=== PATIENT | female | born 2000 | race African-American/Black ===

== ENCOUNTER 2020-07-30 18:42 | Inpatient (IN) ==
[2020-07-30] MEDS ORDERED: LACTATED RINGERS 1,000 ML IV ONE (19:00)
[2020-07-30] MEDS ORDERED: BUTORPHANOL 1 MG/ML VIAL IV PRN (19:00)
[2020-07-30 19:23] LABS: Basophils % 0.2 % (0.0-0.8); Eosinophils # 0.1 10*3/uL (0.0-0.87); Eosinophils % 1.1 % (0.00-10.9); Hematocrit 25.7 VOL% (35.7-47.0); Hemoglobin 8.3 GM/DL (12.0-16.0); Immature Granulocytes % 1.3 %; Immature Granulocytes Absolute 0.11 #; Lymphocytes # 1.9 10*3/uL (1.4-4.0); Lymphocytes % 22.5 % (21.3-54.2); Mean Corpuscular HGB Conc 32.3 GM/DL (32-36); Mean Corpuscular Volume 81.6 FL (87-102); Mean Platelet Volume 10.6 FL (9.6-12.0); Monocytes % 8.6 % (1.7-12.7); Neutrophils % 66.3 % (38.7-73.9); Platelet Count 177 T/CUMM (130-400); Red Blood Count 3.15 MC/CUMM (3.8-5.5); Red Cell Distribution Width 14.4 % (9.3-17.3); White Blood Count 8.4 T/CUMM (4-12)
[2020-07-30] MEDS ORDERED: MEPERIDINE 50 MG/1 ML VIAL IV PRN ×2 (19:23→23:30)
[2020-07-30] MEDS ORDERED: AMPICILLIN INJ 2,000 MG in SODIUM CHLORIDE 0.9% 100 ML IV ONE (19:30)
[2020-07-30 19:43] LABS: Anisocytosis Slight; Hypochromasia 1+; Lymphocytes 18 % (20-55); Segmented Neutrophils 75 % (50-85); Total Cells Counted 100
[2020-07-30 19:44] LABS: Alanine Aminotransferase 11 U/L (13-56); Albumin 2.7 G/DL (3.4-5.0); Alkaline Phosphatase 285 U/L (45-117); Aspartate Amino Transferase 20 U/L (0-37); Bilirubin,Total < 0.39 MG/DL (0.2-1.0); Blood Urea Nitrogen 4 MG/DL (7-18); Calcium 8.3 MG/DL (8.5-10.1); Carbon Dioxide 22 MMOL/L (21-32); Estimated Glom Filtration Rate 128 ML/MIN; Glucose 91 MG/DL (74-106); Osmolality,Calculated 269.8 MOS/KG (273-304); Platelet Estimate Adequate; Polychromasia Few; Potassium 3.5 MMOL/L (3.5-5.1); Reactive Lymphocytes Few; Sodium 137 MMOL/L (136-145); Total Protein 6.8 G/DL (6.4-8.3)
[2020-07-30] MEDS: LACTATED RINGERS 1,000 ML IV SCH (19:45)
[2020-07-30] MEDS: ONDANSETRON 4 MG/2 ML VIAL IV PRN (23:38)
[2020-07-30] MEDS: AMPICILLIN INJ 1,000 MG in SODIUM CHLORIDE 0.9% 100 ML IV SCH (23:50)
[2020-07-31] MEDS ORDERED: diphenhydrAMINE 50 MG/1 ML VIAL IV PRN ×2 (02:22)
[2020-07-31] MEDS ORDERED: NALOXONE 0.4 MG/ML VIAL IV PRN (02:22)
[2020-07-31] MEDS ORDERED: hydrOXYzine HCL 25 MG/1 ML VIAL IM PRN (02:22)
[2020-07-31] MEDS ORDERED: CITRIC ACID/SODIUM CITRATE 30 ML UDCUP PO ONE (02:22)
[2020-07-31] MEDS ORDERED: PROMETHAZINE 25 MG/1 ML VIAL IM ONE (02:22)
[2020-07-31] MEDS ORDERED: ePHEDrine 50 MG/ML VIAL IV PRN (02:22)
[2020-07-31] MEDS ORDERED: FAMOTIDINE 20 MG/2 ML VIAL IV ONE (02:22)
[2020-07-31] MEDS: fentaNYL 2 MCG/ROPIV 0.2% EPID 100 ML EPIDURAL SCH ×3 (02:56→18:21)
[2020-07-31] MEDS: AMPICILLIN INJ 1,000 MG in SODIUM CHLORIDE 0.9% 100 ML IV SCH ×5 (03:41→19:21)
[2020-07-31 03:59] LABS: Bacteria,Urine Occasional /HPF (Few); Bilirubin,Urine Negative (Negative); Blood, Urine Negative (Negative); Glucose,Urine (UA) Negative (Negative); Ketones,Urine Negative (Negative); Nitrite,Urine Negative (Negative); Protein,Urine Negative; RBC,Urine <1 /HPF (0-4); Squamous Epithelial Cell,Urine Occasional /HPF (0-10); Urine Appearance CLEAR (Clear); Urine Color Straw (Yellow); Urine Specific Gravity 1.003 (1.001-1.035); Urine Urobilinogen < 2.0 EU/DL (0.2-1.0); WBC,Urine 7 /HPF (0-6)
[2020-07-31] MEDS: OXYTOCIN/LR 20 UNIT/1,000 ML BAG IV SCH ×2 (05:01→19:32)
[2020-07-31] MEDS: LACTATED RINGERS 1,000 ML IV SCH ×2 (11:01→20:44)
[2020-07-31] MEDS: ONDANSETRON 4 MG/2 ML VIAL IV PRN (20:38)
[2020-07-31] MEDS ORDERED: ceFAZolin 2,000 MG in PREMIX 1 EACH IV ONE (22:03)
[2020-07-31] MEDS ORDERED: METHYLERGONOVINE 0.2 MG/1 ML AMP ONE (22:03)
[2020-07-31] MEDS ORDERED: OXYTOCIN/LR 20 UNIT/1,000 ML BAG IV ONE ×2 (22:03→23:15)
[2020-07-31] MEDS ORDERED: miSOPROStoL 200 MCG TABLET ONE (22:03)
[2020-07-31] MEDS ORDERED: CARBOPROST TROMETHAMINE 250 MCG/ML AMP IM ONE (22:04)
[2020-07-31] MEDS ORDERED: LIDOCAINE MPF 2% /EPI 20 ML VIAL ONE (22:30)
[2020-07-31] MEDS ORDERED: BUPIVACAINE MPF 0.5% /EPI 30 ML VIAL ONE (22:45)
[2020-07-31] MEDS ORDERED: ONDANSETRON 4 MG/2 ML VIAL ONE (22:58)
[2020-07-31] MEDS ORDERED: MORPHINE 10 MG/10 ML VIAL ONE (22:59)
[2020-07-31] MEDS ORDERED: PHENYLEPHRINE 1 MG/10 ML SYRINGE IV ONE (23:05)
[2020-07-31] MEDS ORDERED: ONDANSETRON 4 MG/2 ML VIAL IV PRN (23:15)
[2020-07-31] MEDS ORDERED: RHO(D) IMMUNE GLOBULIN 300 MCG SYRINGE IM ONE (23:15)
[2020-07-31] MEDS ORDERED: MAGNESIUM HYDROXIDE SUSP 30 ML UDCUP PO PRN (23:15)
[2020-07-31] MEDS ORDERED: ACETAMINOPHEN 325 MG TABLET PO PRN (23:15)
[2020-07-31] MEDS ORDERED: SIMETHICONE CHEW 80 MG TABLET PO PRN (23:15)
[2020-07-31] MEDS ORDERED: LACTATED RINGERS 1,000 ML IV SCH (23:30)
[2020-07-31 23:37] LABS: Cord Venous Blood HCO3 23.2 MMOL/L; Cord Venous Blood PCO2 49.4 MMHG; Cord Venous Blood PO2 28.9
[2020-08-01] MEDS: LACTATED RINGERS 1,000 ML IV SCH (00:15)
[2020-08-01] MEDS: IBUPROFEN 800 MG TABLET PO PRN ×2 (02:59→20:24)
[2020-08-01 07:37] LABS: Basophils % 0.1 % (0.0-0.8); Eosinophils % 0.2 % (0.00-10.9); Hematocrit 28.1 VOL% (35.7-47.0); Hemoglobin 8.9 GM/DL (12.0-16.0); Immature Granulocytes % 0.6 %; Immature Granulocytes Absolute 0.08 #; Lymphocytes # 1.3 10*3/uL (1.4-4.0); Lymphocytes % 9.7 % (21.3-54.2); Mean Corpuscular HGB Conc 31.7 GM/DL (32-36); Mean Corpuscular Volume 83.4 FL (87-102); Mean Platelet Volume 10.5 FL (9.6-12.0); Monocytes % 4.2 % (1.7-12.7); Neutrophils % 85.2 % (38.7-73.9); Platelet Count 163 T/CUMM (130-400); Red Blood Count 3.37 MC/CUMM (3.8-5.5); Red Cell Distribution Width 14.6 % (9.3-17.3); White Blood Count 13.8 T/CUMM (4-12)
[2020-08-01] MEDS: FERROUS SULFATE 325 MG TABLET PO SCH ×2 (08:36→20:24)
[2020-08-01] MEDS: MULTIVITAMIN (PRENATAL) TABLET PO SCH (08:36)
[2020-08-01] MEDS: DOCUSATE SODIUM 100 MG CAPSULE PO SCH ×2 (08:36→20:24)
[2020-08-02] MEDS: IBUPROFEN 800 MG TABLET PO PRN (05:40)
[2020-08-02 07:17] VITALS: BP 125/75
[2020-08-02] MEDS: FERROUS SULFATE 325 MG TABLET PO SCH (08:23)
[2020-08-02] MEDS: DOCUSATE SODIUM 100 MG CAPSULE PO SCH (08:23)
[2020-08-02] MEDS: MULTIVITAMIN (PRENATAL) TABLET PO SCH (08:23)
== END 2020-08-02 10:25 | disposition home or self-care (01) | DRG 540 ==
LOC: N.LDOUT 18:42 → N.LD 18:45 → N.OB 08-01 02:30
PROVIDERS: ADMIT Obstetrics & Gynecology; ATTEND Obstetrics & Gynecology
PROC: LDCSECT (ICD-10-PCS; 2020-07-31 22:00)